=== PATIENT | female | born 2000 | race Hispanic/Latino ===

== ENCOUNTER 2021-09-15 16:34 | Emergency (ER) | payer MEDICARE ==
[~2021-09-15] VITALS: Ht 152.4 cm; Wt 68.0 kg
[2021-09-15] MEDS ORDERED: ONDANSETRON HCL INJ 2MG/ML 2ML 2 MG/ML VIAL IV STA (16:50)
[2021-09-15] MEDS ORDERED: SODIUM CHLORIDE 0.9% 1000ML 1,000 ML IV ONE (17:00)
[2021-09-15] MEDS ORDERED: DICYCLOMINE HCL 20 MG/2 ML VIAL IM ONE (17:00)
[2021-09-15 17:06] LABS: BASOPHILS % 0.3 % (0.0-1.0); HEMATOCRIT 37.8 % (34.2-44.1); HEMOGLOBIN 12.7 g/dL (12.0-16.0); LYMPHOCYTES # (AUTO) 0.6 (1.0-3.2); LYMPHOCYTES % 4.8 % (18.0-39.1); MEAN CORPUSCULAR HEMOGLOBIN 30.4 pg (28-32); MEAN CORPUSCULAR HGB CONC 33.6 g/dL (31-35); MEAN CORPUSCULAR VOLUME 90.4 fL (81-99); MONOCYTES # (AUTO) 0.2 (0.2-0.8); MONOCYTES % 1.3 % (4.4-11.3); NEUTROPHILS # (AUTO) 10.9 (2.1-6.9); NEUTROPHILS % 93.1 % (38.7-80.0); PLATELET COUNT 287 x10e3/uL (140-360); RED BLOOD COUNT 4.18 x10e6/uL (3.6-5.1); RED CELL DISTRIBUTION WIDTH 13.3 % (11.7-14.4)
[2021-09-15 17:13] LABS: CLARITY,URINE CLOUDY (CLEAR); COLOR,URINE YELLOW (YELLOW); LEUKOCYTE ESTERASE ,URINE NEGATIVE (NEGATIVE); NITRITE,URINE NEGATIVE (NEGATIVE)
[2021-09-15 17:14] LABS: KETONES,URINE TRACE (NEGATIVE); PROTEIN,URINE DIPSTICK 1+ (NEGATIVE); URINE UROBILINOGEN 0.2 mg/dL (0.2 - 1)
[2021-09-15] MEDS ORDERED: KETOROLAC TROMETHAMINE 30 MG/ML VIAL IV STA (17:27)
[2021-09-15 17:31] LABS: ALBUMIN 4.2 g/dL (3.5-5.0); ALBUMIN/GLOBULIN RATIO 1.2 (0.8-2.0); ANION GAP 10.6 mmol/L (8-16); CREATININE, SERUM 0.7 mg/dL (0.57-1.11); POTASSIUM 3.6 mmol/L (3.5-5.1)
[2021-09-15 17:35] LABS: BACTERIA,URINE MANY /HPF; EPITHELIAL CELLS,URINE FEW /LPF; RBC,URINE >50 /HPF (0-5)
[2021-09-15] MEDS ORDERED: ONDANSETRON ODT4 MG PO (20:15)
[2021-09-15] MEDS ORDERED: HYDROCODON-ACE1 EAC9 PO (20:15)
[2021-09-15] MEDS ORDERED: CEFDINIR300 MG PO (20:15)
[2021-09-15] MEDS ORDERED: KETOROLAC TROME10 MG PO (20:15)
[2021-09-15 20:26] VITALS: BP 104/60
== END 2021-09-15 20:28 | disposition home or self-care (01) ==
LOC: ER 17:00
DX: R10.33 Periumbilical pain (principal); N13.2 Hydronephrosis with renal and ureteral calculous obstruction; R11.2 Nausea with vomiting, unspecified
CPT/HCPCS: 36415; 74176; 80053; 81001; 81025; 83690; 85025; 99284; C9113; J0500; J1885; J2405; J7030

== ENCOUNTER 2021-09-17 16:02 | Emergency (ER) | payer SELFPAY ==
[~2021-09-17] VITALS: Ht 152.4 cm; Wt 68.0 kg
[~2021-09-17 16:02] MED LIST: CEFDINIR300 MG PO; HYDROCODON-ACE1 EAC9 PO; KETOROLAC TROME10 MG PO; ONDANSETRON ODT4 MG PO
[2021-09-17 16:44] LABS: CLARITY,URINE CLEAR (CLEAR); COLOR,URINE YELLOW (YELLOW); LEUKOCYTE ESTERASE ,URINE NEGATIVE (NEGATIVE); NITRITE,URINE NEGATIVE (NEGATIVE); PROTEIN,URINE DIPSTICK NEGATIVE (NEGATIVE)
[2021-09-17 16:45] LABS: KETONES,URINE NEGATIVE (NEGATIVE); URINE UROBILINOGEN 0.2 mg/dL (0.2 - 1)
[2021-09-17 16:55] LABS: WBC,URINE (MAN) 0-5 /HPF (0-5)
[2021-09-17 16:56] LABS: BACTERIA,URINE RARE /HPF
== END 2021-09-17 17:50 | disposition home or self-care (01) ==
LOC: ER 16:05
DX: R10.2 Pelvic and perineal pain (principal); N83.209 Unspecified ovarian cyst, unspecified side; R10.30 Lower abdominal pain, unspecified
CPT/HCPCS: 76830; 76856; 81001; 87086; 99283